=== PATIENT | male | born 1995 | race Two or more races ===

== ENCOUNTER 2022-02-10 20:57 | Emergency (ER) | payer OTHER ==
[~2022-02-10] VITALS: Ht 170.2 cm; Wt 68.0 kg
[2022-02-10] MEDS ORDERED: AMIODARONE 450mg/250ml AE 250 ML IV ONE (21:04)
[2022-02-10] MEDS ORDERED: ROCURONIUM 10MG/ML 10ML VIAL IV ONE ×2 (21:05→21:06)
[2022-02-10] MEDS ORDERED: ETOMIDATE (2MG/ML) 20ML VIAL IV ONE ×2 (21:05→21:06)
[2022-02-10] MEDS ORDERED: NOREPINEPHRINE 8 MG/250ML KIT 250 ML IV SCH (21:15)
[2022-02-10] MEDS ORDERED: MIDAZOLAM DRIP 50 mg/50mL 50 ML IV ONE (21:15)
[2022-02-10] MEDS ORDERED: MIDAZOLAM DRIP 50 mg/50mL 50 ML IV SCH (21:15)
[2022-02-10 21:17] VITALS: BP 124/67
[2022-02-10] MEDS ORDERED: NOREPINEPHRINE 8 MG/250ML KIT 250 ML IV ONE (21:17)
[2022-02-10 21:26] LABS: Hematocrit 44.5 % (41.0-53.0); Mean Corpuscular Volume 93.6 fL (80.0-100.0); Red Blood Cells 4.75 10^6/uL (4.5-5.90)
[2022-02-10 21:30] LABS: Mean Corpuscular Hemoglobin 29.4 pg (28.0-32.0); Mean Corpuscular Hgb Conc. 31.4 g/dL (32.0-36.0); Red Cell Distribution Width 14.6 % (11.8-14.3)
[2022-02-10 21:42] LABS: Basophils % (manual) 0 (0.0-2.0); Blast Cells 0; Metamyelocytes % 0; Promyelocytes % 0; Reactive Lymphocytes 0
[2022-02-10 21:46] LABS: Band Neutrophils % (manual) 2; Eosinophils % (manual) 4 (0-7); Lymphocytes % (manual) 54 (10.0-50.0); Monocytes % (manual) 4 (0-12); Myelocytes % 1
[2022-02-10 21:47] LABS: Alanine Aminotransferase 36 U/L (16-61); Albumin 3.2 g/dL (3.4-5.0); Anion Gap 17 (5-15); Aspartate Aminotransferase 53 U/L (15-37); BUN/Creatinine Ratio 9.1; Blood Alcohol < 3.0 mg/dL (0-5); Blood Urea Nitrogen 15 mg/dL (7-18); Calcium 7.7 mg/dL (8.5-10.1); Carbon Dioxide 18 mmol/L (21-32); Chloride 110 mmol/L (98-107); GFR African American 65 mL/min; GFR Non-African American 54 mL/min; Glucose 253 mg/dL (74-106); Magnesium 2.6 mg/dL (1.6-2.6); Potassium 3.3 mmol/L (3.5-5.1); Salicylate < 1.7 mg/dL (2.8-20.0); Sodium 145 mmol/L (136-145)
[2022-02-10 21:48] LABS: INR 1.25 (0.9-1.15); Partial Thromboplastin Time 30.5 sec (24.6-33.4)
[2022-02-10 21:49] LABS: Alkaline Phosphatase 68 U/L (45-117); Bilirubin, Total 0.9 mg/dL (0.2-1.0); Total Protein 5.9 g/dL (6.4-8.2)
[2022-02-10 21:53] LABS: Acetaminophen < 2.0 ug/mL (10-30)
[2022-02-10] MEDS ORDERED: LABETALOL HCL 5 MG/ML 4ML SYRINGE IV ONE (22:00)
[2022-02-10] MEDS ORDERED: ESMOLOL HCL-NS 10MG/ML 250 ML IV SCH (22:00)
[2022-02-10] MEDS ORDERED: cefTRIAXone 1GM/50ML D5W 50 ML IV ONE (22:15)
[2022-02-10] MEDS ORDERED: PROPOFOL 100 ML IV SCH (22:15)
[2022-02-10] MEDS ORDERED: PROPOFOL 100 ML IV ONE (22:18)
[2022-02-10] MEDS ORDERED: POTASSIUM CHL 20MEQ/100ML 100 ML IV ONE (23:00)
[2022-02-10 23:12] LABS: Urine Bacteria FEW /hpf (None Seen); Urine Blood 3+ /uL (Negative); Urine Mucus FEW (None Seen); Urine Specific Gravity 1.015 (1.001-1.035); Urine Sperm PRESENT /hpf (None Seen); Urine WBC 16 /hpf (0 - 3)
[2022-02-10] MEDS ORDERED: levETIRAcetam 500 MG/5ML INJ IV ONE (23:19)
[2022-02-10 23:22] LABS: Amphetamine Screen, Urine NEGATIVE (NEGATIVE); Barbiturate Scree,Urine NEGATIVE (NEGATIVE); Benzodiazephine Screen, Urine NEGATIVE (NEGATIVE); Cannabinoid Screen, Urine NEGATIVE (NEGATIVE); Cocaine Screen, Urine NEGATIVE (NEGATIVE); Opiate Scree,Urine NEGATIVE (NEGATIVE); Phencyclidine Screen, Urine NEGATIVE (NEGATIVE)
[2022-02-10 23:52] VITALS: BP 119/49
[2022-02-11] MEDS ORDERED: AMIODARONE 450mg/250ml AE 250 ML IV SCH
[2022-02-11 02:00] VITALS: BP 96/37
[2022-02-11 02:52] VITALS: BP 101/49
== END 2022-02-11 03:30 | disposition short-term general hospital (02) ==
LOC: ER 20:57 → EDBD 20:57 → ER 02-11 03:30
DX: I46.9 Cardiac arrest, cause unspecified (principal); E87.6 Hypokalemia; I48.91 Unspecified atrial fibrillation; J45.909 Unspecified asthma, uncomplicated; I10 Essential (primary) hypertension; Z20.822 Contact with and (suspected) exposure to COVID-19
CPT/HCPCS: 31500; 36415; 36600; 70450; 71045; 80053; 80307; 80320; 80329; 81001; 82805; 83735; 84484; 85007; 85027; 85610; 85730; 87070; 87077; 87186; 87205; 87426; 92950; 93005; 96365; 96366; 96368; 96375; 99291; J0282; J0696; J1953; J2250; J2704; J3480; J3490; J7060; 94002